=== PATIENT | female | born 1970 | race African-American/Black ===

== ENCOUNTER 2022-06-09 13:46 | Emergency (ER) | payer MEDICARE, MEDICAID ==
[~2022-06-09] VITALS: Ht 172.7 cm; Wt 66.0 kg
[2022-06-09] MEDS ORDERED: SODIUM CHLORIDE 0.9% 1,000 ML IV ONE (14:15)
[2022-06-09 14:17] VITALS: BP 104/65
[2022-06-09 14:38] LABS: BASOPHILS % 0.2 % (0.0-2.0); EOSINOPHILS % 1.1 % (0.0-5.0); HEMATOCRIT. 30.6 % (36.0-48.0); HEMOGLOBIN. 9.7 g/dL (12.0-16.0); LYMPHOCYTES % 32.5 % (20.0-50.0); MEAN CORPUSCULAR HEMOGLOBIN 22.7 pg (28.0-32.0); MEAN CORPUSCULAR VOLUME 71.4 fL (81.0-99.0); MONOCYTES % 6.6 % (2.0-8.0); NEUTROPHILS % 59.6 % (40.0-76.0); PLATELET 237 x1000/uL (130-400); RED BLOOD CELL COUNT 4.28 mill/uL (4.2-5.4); RED CELL DISTRIBUTION WIDTH 15.3 % (11.6-14.6)
[2022-06-09 14:45] LABS: CHLORIDE 108 mEq/L (98-107); HCG SCREEN NEGATIVE
== END 2022-06-09 15:35 | disposition home or self-care (01) ==
LOC: ER 14:09
DX: E86.0 Dehydration (principal); R55 Syncope and collapse; D50.9 Iron deficiency anemia, unspecified; I10 Essential (primary) hypertension; Z98.890 Other specified postprocedural states
CPT/HCPCS: 36415; 80053; 83605; 84484; 84703; 85025; 93005; 96360; 99283; J7030